=== PATIENT | male | born 1970 | race Caucasian/White ===

== ENCOUNTER 2022-05-03 17:51 | Emergency (ER) | payer OTHER, SELFPAY ==
--- NOTE | ~2022-05-03 | US_ITS ---
EXAMINATION: US VENOUS ULTRASOUND WITH DOPPLER LOWER EXTREMITY, LEFT CLINICAL INFORMATION: Swelling COMPARISON: None TECHNIQUE: Ultrasound of the deep veins is performed from the hip to the calf with compression sonography and color and pulse Doppler assessment. Spectral analysis with color-flow imaging is performed. FINDINGS: There is normal venous compression and respiratory variation and augmented flow. The visualized common femoral vein, superficial femoral vein, profunda femoral vein, popliteal vein, and the trifurcation region shows no evidence of deep venous thrombosis. There is no significant popliteal fossa cyst. If the patient's symptoms persist, followup ultrasound in 5 days 7 days might be of value to exclude proximal propagation from a non-visualized calf vein. US/US venous duplex LE LT IMPRESSION: No DVT demonstrated in the left lower extremity.
--- NOTE | ~2022-05-03 | XR_ITS ---
EXAMINATION: XR KNEE, LEFT CLINICAL INFORMATION: Left knee swelling for 2 months. No known injury. COMPARISON: None TECHNIQUE: Two views of the left knee. FINDINGS: No acute fracture or dislocation. No knee joint effusion. Prepatellar and medial joint line soft tissue swelling. Spaces are maintained. No osteophytes. No osseous lesion. XR/XR knee LT 2V IMPRESSION: 1. Nonspecific soft tissue swelling anteriorly and along the medial joint line of the knee. 2. No acute osseous injury or joint effusion.
[2022-05-03 18:23] VITALS: BP 129/91; PULSE 75; RESP 18; TEMP 36.8; O2SAT 98; BMI 23.7
[2022-05-03 18:58] VITALS: BP 137/89; PULSE 74; RESP 18; O2SAT 98
--- NOTE | 2022-05-03 19:14 | ED.LOWEXIN ---
HPI - Extremity Injury (Lower) General Chief Complaint: Extremity Injury, Lower Stated Complaint: swollen left leg Time Seen by Provider: 05/03/22 19:09 Source: patient Mode of arrival: ambulatory Limitations: no limitations History of Present Illness HPI Narrative: this is a 51 years old male presented to the emergency department with a chief complaint of left knee pain and left leg swelling, he states that he fell about a month ago and since then is complaining of pain. He is ambulatory to the emergency department denies any fever chills MD complaint: other (left knee /leg pain) Onset (ago): month(s) (1) Type of Injury: blunt Place: home Severity: moderate Relieving factors: nothing Exacerbating factors: nothing Context: fall Related Data Allergies Allergy/AdvReac Type Severity Reaction Status Date / Time No Known Allergies Allergy Unverified 06/09/20 17:08 Review of Systems Review of Systems: Yes all other systems are reviewed and are negative Constitutional: Constitutional: Reports no additional constitutional complaints Eyes: Eyes: Reports no additional eye complaints Musculoskeletal: Musculoskeletal: Reports no additional musculoskeletal complaints PMFSH Social History Social History Alcohol intake: never Patient Tobacco Use Status: Never used Tobacco Use of substances other than those prescribed or required for medical reasons: No Advance Directives: No Advance Directives Information Provided: No Physical Exam Vital Signs: Vital Signs: Last Vital Signs Temp 98.3 F 05/03/22 18:23 Pulse 74 05/03/22 18:58 Resp 18 05/03/22 18:58 BP 137/89 05/03/22 18:58 Pulse Ox 98 05/03/22 18:58 O2 Del Method 05/03/22 18:58 BMI result Body Mass Index 23.7 Const: General: cooperative and healthy appearing Nutritional Appearance: average body habitus and well nourished Orientation/consciousness: patient oriented x3 Limitations: no limitations HEENT: Head: Yes normal to inspection Face and sinus: Yes normal facial exam Mouth: Normal oral and palatal mucosa present Neck: Neck: Yes normal visual inspection Resp: Effort & Inspection: normal respiratory effort Auscultation: clear to auscultation bilaterally Cardio: Jugular venous distension: no JVD Rate: regular rate Rhythm: regular rhythm GI: Inspection: Yes normal to inspection Palpation (GI): Soft to palpation, not firm and no guarding Auscultation: normal bowel sounds Skin: General skin exam: no rashes or lesions noted Neuro: General: patient oriented x3 Extrem: Other: patient has tenderness in the medial aspect of the left knee there is a little bit of swelling in the calf, he has excellent pedal pulses. Course Reevaluation(s) Reevaluation #1: workup is negative including ultrasound x-ray at this point will discharge the patient home with follow-up with Ortho. The patient does have thrombocytopenia since November 2019, is also was anemia and leukopenia this was discussed with the patient I told him to follow up with his primary care physician I gave [id number] number also of Adult Primary Care and Family Medicine . MDM - Extremity Injury (Lower) Lab Data Attestation: I reviewed the patient's lab results. Result diagrams: 05/03/22 19:25 05/03/22 19:25 Labs: Lab Results 05/03/22 05/03/22 Range/Units 19:25 19:25 WBC 3.9 L (4.8-10.8) X10*3/uL RBC 4.08 L (4.60-5.80) X10*6/uL Hgb 12.8 L (14.0-18.0) g/dl Hct 37.0 L (42.0-52.0) % MCV 90.7 (80.0-98.0) fL MCH 31.4 (27.0-33.0) pg MCHC 34.6 (31.0-36.0) g/dl RDW 13.2 (11.0-16.0) % Plt Count 93 L (160-400) X10*3/uL MPV 10.2 (9.4-12.4) fL Immature Gran % (Auto) 0.3 (0.0-0.4) % Neut % (Auto) 59.2 (45-73) % Lymph % (Auto) 29.0 (20-40) % [place] % (Auto) 9.2 (2-11) % Eos % (Auto) 1.5 (0-4) % Baso % (Auto) 0.8 (0-2) % Lymph # (Auto) 1.1 L (1.2-4.9) X10*3/uL [place] # (Auto) 0.4 (0.1-1.2) X10*3/uL Eos # (Auto) 0.1 (0.0-0.4) X10*3/uL Baso # (Auto) 0.0 (0.0-0.2) X10*3/uL Abs Immat Gran (auto) 0.01 (0.00-0.03) X10*3/uL Absolute Neuts (auto) 2.3 (2.0-8.3) x10*3/uL Absolute Nucleated RBC 0.000 (0.0-0.012) X10*3/uL Nucleated RBC % (auto) 0.0 (0.0-0.2) /100WBC Sodium 139 (135-145) mmol/L Potassium 3.9 (3.3-5.1) mmol/L Chloride 105 (96-108) mmol/L Carbon Dioxide 26 (22-29) mmol/L Anion Gap 12 (12-20) BUN 17 H (9-16) mg/dL Creatinine 0.74 (0.5-1.4) mg/dL Estim Creat Clear Calc 131.0 Estimated GFR > 60 Random Glucose 121 H (60-115) mg/dL Calcium 8.4 (8.4-10.2) mg/dL Total Bilirubin 1.0 (0.0-1.0) mg/dL AST 35 (5-37) U/L ALT 42 H (0-40) U/L Alkaline Phosphatase 75 (39-117) U/L Total Protein 6.4 L (6.5-8.0) g/dL Albumin 4.0 (3.5-5.0) g/dL Imaging Data knee: Radiologist's impression: COMPARISON: None? TECHNIQUE: Two views of the left knee. FINDINGS: No acute fracture or dislocation. No knee joint effusion. Prepatellar and medial joint line soft tissue swelling. Spaces are maintained. No osteophytes. No osseous lesion. XR/XR knee LT 2V IMPRESSION: ? 1. Nonspecific soft tissue swelling anteriorly and along the medial joint line of the knee. 2. No acute osseous injury or joint effusion. ? Dictated By: Bassem Rogers Signed By: <Electronically signed by Bassem? Ken in OV> 05/03/221935 leg: Radiologist's impression: COMPARISON:? None TECHNIQUE: Ultrasound of the deep veins is performed from the hip to the calf with compression sonography and color and pulse Doppler assessment. Spectral analysis with color-flow imaging is performed. FINDINGS: There is normal venous compression and respiratory variation and augmented flow. The visualized common femoral vein, superficial femoral vein, profunda femoral vein, popliteal vein, and the trifurcation region shows no evidence of deep venous thrombosis. ? There is no significant popliteal fossa cyst. If the patient's symptoms persist, followup ultrasound in 5 days 7 days might be of value to exclude proximal propagation from a non-visualized calf vein. US/US venous duplex LE LT IMPRESSION: No DVT demonstrated in the left lower extremity. Dictated By: Monica Brar MD Signed By: <E Discharge Plan Discharge Clinical Impression: Knee pain, left, Thrombocytopenia Patient Disposition: Home, Self-Care Instructions: Knee Pain (ED), Thrombocytopenia (ED) Additional Instructions: platelet count are low avoid any aspirin and nonsteroidal medication tylenol for pain .Make sure you follow up with Primary Care Doctor as well if you do not have a Primary Care Doctor please call Adult Primary Care ([phone] or Family Medicine Referrals: Hiren Styles MD [Physician] - 2 days
[2022-05-03 19:30] LABS: MANUAL DIFF FLAG NO
[2022-05-03 19:37] LABS: Basophils Percent Auto 0.8 % (0-2); Eosinophils Absolute Auto 0.1 X10*3/uL (0.0-0.4); Eosinophils Percent Auto 1.5 % (0-4); Hemoglobin 12.8 g/dl (14.0-18.0); Imm Gran Abs Auto 0.01 X10*3/uL (0.00-0.03); Imm Gran Pct Auto 0.3 % (0.0-0.4); Lymphocytes Absolute Auto 1.1 X10*3/uL (1.2-4.9); Mean Corpuscular HGB Conc 34.6 g/dl (31.0-36.0); Mean Corpuscular Hemoglobin 31.4 pg (27.0-33.0); Mean Corpuscular Volume 90.7 fL (80.0-98.0); Mean Platelet Volume 10.2 fL (9.4-12.4); Monocytes Absolute Auto 0.4 X10*3/uL (0.1-1.2); Monocytes Percent Auto 9.2 % (2-11); Neutrophils Absolute Auto 2.3 x10*3/uL (2.0-8.3); Neutrophils Percent Auto 59.2 % (45-73); Red Blood Count 4.08 X10*6/uL (4.60-5.80); Red Cell Distribution Width 13.2 % (11.0-16.0); White Blood Count 3.9 X10*3/uL (4.8-10.8)
[2022-05-03 19:47] LABS: Alanine Aminotransferase 42 U/L (0-40); Alkaline Phosphatase 75 U/L (39-117); Anion Gap 12 (12-20); Aspartate Amino Transferase 35 U/L (5-37); Blood Urea Nitrogen 17 mg/dL (9-16); Calcium 8.4 mg/dL (8.4-10.2); Carbon Dioxide 26 mmol/L (22-29); Chloride 105 mmol/L (96-108); Estimated Glomerular Filt Rate > 60; Glucose Random 121 mg/dL (60-115); Potassium 3.9 mmol/L (3.3-5.1); Sodium 139 mmol/L (135-145); Total Protein 6.4 g/dL (6.5-8.0)
[2022-05-03 19:54] LABS: Platelet Count 93 X10*3/uL (160-400)
--- NOTE | 2022-05-03 21:13 | PC.NURSE ---
Spoke with supervisor labor gang and lyme panel can be added to existing blood specimen obtained earlier in pt's visit.
[2022-05-07 18:26] LABS: Lyme Abs Screen <0.90 index
== END 2022-05-03 21:26 | disposition home or self-care (01) ==
PROVIDERS: Emergency Provider Emergency Medicine
DX: M25.562 Pain in left knee (principal); D69.6 Thrombocytopenia, unspecified
CPT/HCPCS: 36415; 73560; 80053; 85025; 86617; 86618; 93971; 99284

== ENCOUNTER 2022-09-11 19:16 | Emergency (ER) | payer OTHER, SELFPAY ==
--- NOTE | ~2022-09-11 | XR_ITS ---
EXAMINATION: XR HIP, LEFT CLINICAL INFORMATION: Pain. Atraumatic. COMPARISON: None TECHNIQUE: Two views of the left hip. Frontal view of the pelvis. FINDINGS: No fracture or dislocation. The hips are well aligned. Joint spaces are maintained. Small osteophytes at the left hip. Some chondral sclerosis bilaterally. The pelvic rim is intact. The sacroiliac joints and pubic symphysis are intact. Normal bowel gas pattern. XR/XR hip LT min 2V IMPRESSION: Mild degenerative change of the hips.
[2022-09-11 19:19] VITALS: BP 154/103; PULSE 75; RESP 17; TEMP 36.8; O2SAT 98; BMI 24.4
--- NOTE | 2022-09-11 19:20 | ED_ITS ---
HPI - Extremity Problem General Chief complaint: Extremity Problem Stated complaint: hip pain Related Data Allergies Allergy/AdvReac Type Severity Reaction Status Date / Time No Known Allergies Allergy Unverified 06/09/20 17:08 [facility] Social History Social History Alcohol intake: never Patient Tobacco Use Status: Never used Tobacco Advance Directives: No Advance Directives Information Provided: No Physical Exam Vital Signs: Vital Signs: Last Vital Signs Temp 98.3 F 09/11/22 19:19 Pulse 75 09/11/22 19:19 Resp 17 09/11/22 19:19 BP 154/103 H 09/11/22 19:19 Pulse Ox 98 09/11/22 19:19 O2 Del Method 09/11/22 19:19 BMI result Body Mass Index 24.4 Course Course Course Narrative: RME: Patient is a 52-year-old male with no reported past medical history. Complaining of left hip pain, onset last week, atraumatic. Also reporting left lower back pain. Pain radiates all the way down the leg to the foot. Denies numbness, tingling. Denies associated fevers or chills. No dysuria. No bladder bowel dysfunction. Denies any rashes or lesions. Has not trialed any OTC medications for pain. Plan: XR the left hip/pelvis to evaluate for degenerative changes, declines pain medication at this time. Discharge Plan Discharge Clinical Impression: Acute hip pain Patient Disposition: Elopement Discharge Date/Time: 09/11/22 23:19
== END 2022-09-11 23:19 | disposition left against medical advice (07) ==
LOC: HO.ED 23:01
PROVIDERS: Emergency Provider Emergency Medicine
DX: M25.552 Pain in left hip (principal)
CPT/HCPCS: 73502; 99281; 99283

== ENCOUNTER 2022-09-13 16:46 | Outpatient (REF) | payer OTHER, SELFPAY ==
--- NOTE | ~2022-09-13 | XR_ITS ---
EXAMINATION: XR LUMBOSACRAL SPINE CLINICAL INFORMATION: Radiculopathy COMPARISON: Lumbar radiographs 06/14/2012 TECHNIQUE: Three views of the lumbosacral spine. FINDINGS: There is normal lumbar segmentation with 5 nonrib-bearing lumbar vertebrae of normal height. There is borderline sacralization of the transverse processes L5 again seen. Probable spina bifida occulta S1. The 12th ribs are hypoplastic. Again, there is mild dextrocurvature lumbar spine. There is no interval vertebral compression or spondylolisthesis or destructive process. No focal interval disc narrowing. No erosive changes. The SI joints and visualized sacrum are unremarkable. There is a punctate density in region of rectosigmoid not previously demonstrated talar bowel gas unremarkable. No pneumatosis. XR/XR lumbar spine 2-3V IMPRESSION: -Dextrocurvature lumbar spine. -No vertebral compression, spondylolisthesis, or focal disc narrowing.
== END 2022-09-13 16:47 | disposition home or self-care (01) ==
LOC: HO.XRAY 16:46
PROVIDERS: PCP Internal Medicine; Visit Provider Internal Medicine
DX: M54.16 Radiculopathy, lumbar region (principal)
CPT/HCPCS: 72100

== ENCOUNTER 2023-02-22 20:13 | Emergency (ER) | payer OTHER, SELFPAY ==
--- NOTE | ~2023-02-22 | US_ITS ---
EXAMINATION: US VENOUS WITH DOPPLER LOWER EXTREMITY, LEFT CLINICAL INFORMATION: Left leg pain. Evaluate for deep vein thrombosis. COMPARISON: None available. TECHNIQUE: Ultrasound of the deep veins is performed from the hip to the calf with compression sonography and color and pulse Doppler assessment. Spectral analysis with color-flow imaging is performed. FINDINGS: There is normal venous compression and respiratory variation and augmented flow. The visualized common femoral vein, superficial femoral vein, profunda femoral vein, popliteal vein, and the trifurcation region shows no evidence of deep venous thrombosis. There is no significant popliteal fossa cyst. Mildly prominent left inguinal lymph node with normal anatomy. If the patient's symptoms persist, followup ultrasound in 5 days 7 days might be of value to exclude proximal propagation from a non-visualized calf vein. US/US venous duplex LE IMPRESSION: No DVT demonstrated in the left lower extremity.
--- NOTE | 2023-02-22 20:21 | ED_ITS ---
HPI - General Adult General Chief complaint: Extremity Injury, Lower Stated complaint: L knee swollen, blood clot? Source: patient and family (patient's ) Mode of arrival: ambulatory Limitations: no limitations History of Present Illness HPI narrative: Patient is a 52 year old assigned male at with no reported medical history presenting to the emergency department today with left lower leg swelling. Kody nt states that for a little while now his left lower leg will swell and then go down, then re-swell. Patient states that he told his provider this and he recommended he come to the ER and have an US to rule out a blood clot. Patient denies any dizziness, lightheadedness, abdominal pain, nausea, vomiting, fever, chills, blurry vision, double vision, loss of vision, chest pain, difficulty breathing, shortness of breath, back pain, night sweats, pain with urination, increased urinary frequency, increased urinary urgency, blood in his urine or stool, syncope or a near syncopal episode, recent trauma or falls, bowel incontinence, bladder incontinence, bowel retention, bladder retention, or any other complaints at this time. Location: left and lower extremity Severity: mild Relieving factors: none Exacerbating factors: none Associated symptoms: denies other symptoms Treatments prior to arrival: none Related Data Allergies Allergy/AdvReac Type Severity Reaction Status Date / Time No Known Allergies Allergy Unverified 06/09/20 17:08 Review of Systems Constitutional: Constitutional: Reports no additional constitutional complaints, Denies chills, Denies fever(s) and Denies night sweats Eyes: Eyes: Reports no additional eye complaints, Denies blurry vision, Denies change in vision, Denies diplopia, Denies eye discharge, Denies loss of vision and Denies eye pain ENT: Denies dizziness Cardiovascular: Cardiovascular: Reports no additional cardiovascular complaints, Denies chest pain, Denies lightheadedness, Denies Loss of Consciousness and Denies dyspnea Respiratory: Respiratory: Reports no additional respiratory complaints and Denies dyspnea Gastrointestinal: Gastrointestinal: Reports no additional gastrointestinal complaints, Denies abdominal pain, Denies melena, Denies hematochezia, Denies change in bowel habits and Denies change in stool character Genitourinary: Genitourinary: Reports no additional male genitourinary complaints, Denies hematuria, Denies oliguria, Denies difficulty urinating, Denies dysuria, Denies urinary frequency, Denies urinary hesitancy, Denies urinary incontinence and Denies urinary urgency Musculoskeletal: Musculoskeletal: Reports no additional musculoskeletal complaints, Denies numbness and Denies tingling Comments: left lower leg swelling, intermittent Neurologic: Denies dizziness, Denies loss of vision, Denies numbness and Denies tingling Psychiatric: Psychiatric: Reports no additional psychiatric complaints Endocrine: Endocrine: Reports no additional endocrine complaints Hematologic/Lymphatic: Hematologic/Lymphatic: Reports no additional hematologic/lymphatic complaints Allergic/Immunologic: Allergic/Immunologic: Reports no additional allergic/immunologic complaints PMFSH Past Medical History Attestation statement: The following information was validated with the patient. (all information validated with the patient's ) Source: old records reviewed, obtained from family (patient's ) and nursing notes reviewed Social History Social History Alcohol intake: never Patient Tobacco Use Status: Never used Tobacco Advance Directives: No Advance Directives Information Provided: No Physical Exam ED Vital Signs: Vital Signs - 24 hr 02/22/23 20:22 Temperature 98.1 F Pulse Rate 75 Respiratory Rate 16 Blood Pressure 114/99 H Pulse Oximetry 99 Oxygen Delivery Method Room Air BMI result Body Mass Index 25.1 Const General: cooperative, no acute distress, alert and awake Nutritional Appearance: well nourished Orientation/consciousness: patient oriented x3 Limitations: no limitations HENMT Head: Yes normal to inspection and Yes atraumatic Ears: hearing grossly normal bilaterally and external ears normal General nose exam: Normal external nose present, no nasal discharge noted and no epistaxis Face and sinus: Yes normal facial exam, No abrasion and No laceration Mouth: Normal oral and palatal mucosa present, no drooling and no muffled voice Eyes General: appearance normal, both eyes and all related structures Periorbital: periorbital findings normal Eyelids: Yes eyelids normal Conjunctivae: conjunctivae normal Pupils: Equal, round and reactive pupils present EOM: EOMs intact bilaterally Neck Neck: Yes normal visual inspection, Yes full ROM and Yes no lymphadenopathy Chest Chest palpation & inspection: normal inspection of the chest Resp Effort & Inspection: normal respiratory effort and able to speak in complete sentences GI Inspection: Yes normal to inspection Neuro General: patient oriented x3 and moves all extremities Cranial nerves: Yes Equal, round and reactive pupils present Cognition (Neuro): normal cognition Motor exam (neuro): 5/5 motor strength present throughout Sensory Exam: Normal double simultaneous stimulation for sensation Coordination: [id number] test normal Extrem Other: minimal swelling present to the left lower leg General: Yes full ROM and Yes capillary refill normal Psych Appearance: grossly normal Mental Status: mental status grossly normal Affect: normal affect Attitude: cooperative Thought process: Normal thought process present Thought content: Normal thought content present Insight: Good insight present (Psych) Course Course Course Narrative: RME performed by Maris Foster PA-C. Patient is a 52 year old assigned male at presenting to the emergency department with left lower leg pain. Imaging ordered. Patient placed back in the waiting room pending room availability and results. Medical Decision Making Medical Decision Making MDM Narrative: Patient is a 52 year old assigned male at with no reported medical history presenting to the emergency department today with intermittent left lower leg swelling. Patient's physical exam showed mild left lower leg swelling. Patient's left lower leg US showed no acute process. The patient and his eloped from the department before myself or any other provider within the department could explain the patient's physical exam findings or test results the patient or his . Differential Diagnosis Differential Diagnoses: The differential diagnosis associated with the p resentation includes DVT, left lower leg swelling Independent Interpretation I performed an independent interpretation of an: Ultrasound Interpretation: My interpretation is in agreement with the radiologist's impression of this imaging study. EXAMINATION:? US VENOUS WITH DOPPLER LOWER EXTREMITY, LEFT CLINICAL INFORMATION:? Left leg pain. Evaluate for deep vein thrombosis. COMPARISON:? None available. TECHNIQUE: Ultrasound of the deep veins is performed from the hip to the calf with compression sonography and color and pulse Doppler assessment. Spectral analysis with color-flow imaging is performed. FINDINGS: There is normal venous compression and respiratory variation and augmented flow. The visualized common femoral vein, superficial femoral vein, profunda femoral vein, popliteal vein, and the trifurcation region shows no evidence of deep venous thrombosis.? There is no significant popliteal fossa cyst. Mildly prominent left inguinal lymph node with normal anatomy. If the patient's symptoms persist, followup ultrasound in 5 days 7 days might be of value to exclude proximal propagation from a non-visualized calf vein. US/US venous duplex LE LT IMPRESSION: No DVT demonstrated in the left lower extremity. Dictated By: Gómez Zamora MD Signed By: Electronically signed by Gómez Zamora MD 02/22/23 [id number] Independent Historian Clinical information obtained from an independent historian. History obtained from or confirmed by: Spouse (patient's provided history and confirmation of the history provided by the patient) Discharge Plan Discharge Clinical Impression: Left leg swelling Patient Disposition: Elopement Discharge Date/Time: 02/22/23 22:21
[2023-02-22 20:22] VITALS: BP 114/99; PULSE 75; RESP 16; TEMP 36.7; O2SAT 99; BMI 25.1
--- OUTSIDE RECORDS SUMMARY | 2023-02-22 22:13 | XMS_ITS | Continuity of Care Document ---
Author Name Unknown Organization [facility] Address [address] [place] [id number]- Care Team Providers Care Onboarding Specialist Name Role Phone Lucy Lopez MD Primary Care Physician Encounter [facility] [place] Date(s): 06/07/22 - 10/05/22 [facility] [address] [address]- Attending Physician: Lucy Lopez MD Admitting Physician: Lucy Lopez MD Referring Physician: Lucy Lopez MD Patient Care team information Care Team Personnel Name: Lucy Lopez MD Position: [facility] Physician (General Medicine) Member Role: PCP Address: Address: [address] [place] [id number]- Care Team Related Persons Name: MIGUE PHILLIPS Address: home [address] [place] [id number]
--- OUTSIDE RECORDS SUMMARY | 2023-02-22 22:13 | XMS_ITS | Continuity of Care Document ---
Author Name Unknown Organization [facility] Address [address] [place] [id number]- Care Team Providers Care Stapler Coil Unit Name Role Phone Lucy Lopez MD Primary Care Physician [phone] Encounter [facility] [place] Date(s): 09/05/22 - 10/05/22 [facility] [address] [address]- Attending Physician: Morena Lim Admitting Physician: Morena Lim Referring Physician: Admtr, [id number] Patient Care team information Care Team Personnel Name: Lucy Lopez MD Position: [facility] Physician (General Medicine) Member Role: PCP Address: Address: [address] [place] [id number]- Care Team Related Persons Name: MIGUE PHILLIPS Address: home [address] [place] [id number]
== END 2023-02-22 22:21 | disposition left against medical advice (07) ==
PROVIDERS: Emergency Provider Emergency Medicine; PCP Internal Medicine
DX: M79.89 Other specified soft tissue disorders (principal); M79.662 Pain in left lower leg
CPT/HCPCS: 93971; 99281; 99284

== ENCOUNTER 2023-03-02 10:39 | Outpatient (REF) | payer OTHER, SELFPAY ==
--- NOTE | ~2023-03-02 | XR_ITS ---
EXAMINATION: XR KNEE, LEFT CLINICAL INFORMATION: Prepatellar bursitis. COMPARISON: Radiographs dated 05/03/2022. TECHNIQUE: AP, lateral, tunnel, and sunrise views of the left knee. FINDINGS: Bony alignment and mineralization are normal. The lateral, medial and patellofemoral joint space compartments are well-maintained. No fracture or dislocation is seen. There is no significant joint effusion. Again, there is anterior soft tissue swelling, consistent with the provided history of prepatellar bursitis. XR/XR knee LT 4V IMPRESSION: 1. No fracture or dislocation is seen. There is no significant joint effusion. 2. There is persistent anterior soft tissue swelling, consistent with the provided history of prepatellar bursitis.
== END 2023-03-02 10:40 | disposition home or self-care (01) ==
LOC: HO.XRAY 10:39
PROVIDERS: PCP Internal Medicine; Visit Provider Internal Medicine
DX: M25.562 Pain in left knee (principal)
CPT/HCPCS: 73564

== ENCOUNTER 2023-12-28 07:41 | Outpatient (REF) | payer OTHER, SELFPAY ==
--- NOTE | ~2023-12-28 | XR_ITS ---
EXAMINATION: XR HAND, LEFT CLINICAL INFORMATION: Left hand pain COMPARISON: Radiographs 12/11/2019 TECHNIQUE: PA, lateral, and oblique views of the left hand. FINDINGS: No acute fracture or malalignment. Chronic deformity of the tuft of the 1st distal phalanx. 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 XR/XR hand LT min 3V IMPRESSION: No acute fracture. 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
== END 2023-12-28 07:42 | disposition home or self-care (01) ==
LOC: HO.XRAY 07:41
PROVIDERS: PCP Internal Medicine; Visit Provider Internal Medicine
DX: S63.92XD Sprain of unspecified part of left wrist and hand, subsequent encounter (principal)
CPT/HCPCS: 73130